=== PATIENT | male | born 1945 | race Caucasian/White ===

== ENCOUNTER 2022-07-16 17:09 | Emergency (ER) | payer OTHER ==
[~2022-07-16] VITALS: Ht 170.2 cm; Wt 86.2 kg
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
--- NOTE | 2022-07-16 17:23 | NUR ---
ER E AT BEDSIDE FOR MSE
[2022-07-16] MEDS ORDERED: ASPIRIN 325 MG TABLET PO ONE (17:45)
[2022-07-16] MEDS ORDERED: ASPIRIN 325 MG TABLET ONE (17:49)
[2022-07-16 18:08] LABS: HEMATOCRIT 35.5 % (36.7-47.1); MEAN CORPUSCULAR HEMOGLOBIN 32.1 uug (23.8-33.4); MEAN CORPUSCULAR VOLUME 95.1 fL (73.0-96.2); PLATELET COUNT (AUTO) 208 K/uL (152-348)
[2022-07-16 18:34] LABS: CARBON DIOXIDE 27 mmol/L (21-32); CHLORIDE 104 mmol/L (98-107); GLUCOSE 89 mg/dL (74-106); POTASSIUM 3.4 mmol/L (3.5-5.1); UREA NITROGEN, BLOOD 13 mg/dL (7-18)
[2022-07-16 18:46] LABS: ALANINE AMINOTRANSFERASE 17 U/L (16-63); ALKALINE PHOSPHATASE 88 U/L (50-136); ASPARTATE AMINOTRANSFERASE 11 U/L (15-37); BILIRUBIN,DIRECT 0.1 mg/dL (0.0-0.2); BILIRUBIN,TOTAL 0.5 mg/dL (0.2-1.0); TOTAL PROTEIN, SERUM 7.1 g/dL (6.4-8.2)
--- NOTE | 2022-07-16 19:13 | NUR ---
Endorsed to Azra MARIE.
[2022-07-16] MEDS ORDERED: ONDANSETRON ODT 4 MG TAB.RAPDIS SL ONE (19:45)
[2022-07-16] MEDS ORDERED: ONDANSETRON ODT 4 MG TAB.RAPDIS ONE (19:57)
--- NOTE | 2022-07-16 20:50 | NUR ---
Dr Friedman at bedside MSE in progress
[2022-07-16] MEDS ORDERED: LORAZEPAM 2 MG/1 ML VIAL IV ONE (22:45)
[2022-07-16] MEDS ORDERED: LORAZEPAM 2 MG/1 ML VIAL ONE (22:57)
--- NOTE | 2022-07-16 23:02 | NUR ---
[facility] wire rope sales representative called back, was told to have Dr Friedman call Dr Clark for report
--- NOTE | 2022-07-16 23:44 | NUR ---
Patient has been accepted by Dr Eduardo Johnson [facility]
--- NOTE | 2022-07-16 23:45 | NUR ---
summary report faxed to Nick Gonzalez Admitting
--- NOTE | 2022-07-17 00:15 | NUR ---
Nick Gonzalez patient control number: [id number]
--- NOTE | 2022-07-17 00:52 | NUR ---
patient will be transfered to [facility] room [address] Clark call for report [phone]
--- NOTE | 2022-07-17 01:03 | NUR ---
report given to Misa Gonzalez
--- NOTE | 2022-07-17 01:07 | NUR ---
called [facility] for transportatio. ETA 60 mins
--- NOTE | 2022-07-17 01:37 | NUR ---
[facility] ambulance unit [address] at bedside for transportation
--- NOTE | 2022-07-17 01:49 | NUR ---
Patient Tranfers to outside Facility together with all belongings Physician: Dr Clark Location: [facility]
== END 2022-07-17 01:52 | disposition short-term general hospital (02) ==
LOC: ER 17:09
DX: R07.9 Chest pain, unspecified (principal); I10 Essential (primary) hypertension; D64.9 Anemia, unspecified; Z20.822 Contact with and (suspected) exposure to COVID-19
CPT/HCPCS: 99285; 96374; 71045; 87426; 80076; 80048; 83880; 85025; 85379; 85730; 84484; 36415; 93005; J2060; A4663; Q0162